=== PATIENT | female | born 1985 | race Asian ===

== ENCOUNTER 2023-06-19 08:31 | Inpatient (IN) ==
--- NOTE | 2023-06-19 08:36 | History & Physical Report ---
"Date of Service June 19, 2023 Assessment & Plan (1) Elderly multigravida, currently : (2) Encounter for induction of labor: Plan 37 y/o at 40w 3d weeks Admit to L&D Pitocin augmentation if needed monitor Category 1 Epidural when requested. GBS negative Anticipate vaginal . Admission and Anticipated Discharge Date Admission Date: June 19, 2023 History of Present Illness Primary Care Provider: NO PCP 37 y/o at 40w 3d, CLAUDIA:06/15/2023. Here for Induction of labor. Complications with this include GDM diet controlled and AMA. Has been attending OB appointments regularly. Currently taking no medications. GBS negative, Rubella immune, BTG: AB + Contractions: none. Fluid or Blood loss: none Movement: active FHR baseline 140, moderate variability, accelerations present, decelerations absent Lab Results OB Labs: Blood Type AB Positive 11/19/22 Antibody Screen NEGATIVE 11/19/22 Hemoglobin 10.4 g/dl (12.0-16.0) L 04/23/23 Hematocrit 31.5 % (37.0-47.0) L 04/23/23 Mean Corpuscular Volume 91.0 fL (80.0-100.0) 11/19/22 Platelet Count 250 K/uL (130-400) 11/19/22 Rubella IgG Antibody Immune (Immune) 11/19/22 Rapid Plasma Reagin Nonreactive (Nonreactive) 11/19/22 Hepatitis B Surface Antigen. NON-REACTIVE (NON-REACTIVE) 11/19/22 Hepatitis C Antibody (EIA) NON-REACTIVE (NON-REACTIVE) 11/19/22 HIV (1&2) Ag and Ab Confirmation NON-REACTIVE (NON-REACTIVE) 11/19/22 Glucose 1 Hour 50 gm Load 135 mg/dl (70-130) H 12/30/22 OB Optional Labs: Chlamydia trachomatis RNA Not Detected (NotDetected) 11/19/22 Neisseria gonorrhoeae RNA Not Detected (NotDetected) 11/19/22 Labs Reviewed: Declines genetics--mln cfdna-low risk--mln Allergies Allergy/AdvReac Type Severity Reaction Status Date / Time No Known Allergies Allergy Verified 06/18/23 09:09 Home Medications Medication Instructions Recorded Confirmed Type blood sugar diagnostic (XerosTouch #150 ea 05/05/23 06/18/23 Rx Verio test strips) blood-glucose meter (OneTouch #1 ea 05/05/23 06/18/23 Rx Verio Reflect Meter) lancets 33 gauge (OneTouch Delica #150 ea 05/05/23 06/18/23 Rx Plus Lancet) ferrous sulfate 325 mg (65 mg 325 mg PO DAILY 06/19/23 06/19/23 History iron) tablet prenat.vits,lucy,qwn-fboq-rexoy tab 06/19/23 History Patient History Family History Father Myocardial infarction Denies family history of Ovarian cancer Prostate cancer Breast cancer Colorectal cancer Social History Smoking Status: Never smoker Do You Dip or Chew Tobacco: No; Hx Alcohol Use: No Hx Substance Use: No Preferred Language: Irish Communication Ability: Effective 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 Skin: warm, dry, intact HEENT: NC/AT, anicteric sclera, conjunctiva without injection, moist mucus membranes Heart: +S1/S2, regular, no m/r/g Lungs: equal air entry bilaterally, no rales/rhonchi/wheezes Abd: +BS, soft, NT/ND, gravid uterus Cervical: 3|70|-2|, uterus mod. anterior Ext: warm, no clubbing/cyanosis or edema Neuro: nonfocal, patient AA&O x 4, speech intact, no facial droop, moving all extremities on command. Supervising Physician Co-Signing Physician Notes Resident Physician Supervision Note: I was present with Dr. Zeus Ching during the history and exam. I discussed the case with the resident and agree with the findings and plan as documented in the note. Any exceptions or clarifications are listed here: Admit for IOL, start pitocin. Documented By: Bianka Bravo DO Resident Activity Tracking Resident Involvement: Resident Care Provided Care Provided: OB Delivery"
[2023-06-19] MEDS ORDERED: OXYTOCIN 30 UNITS/NSS 30 UNITS/500 ML BAG IV PRN ×2 (08:45→21:52)
[2023-06-19] MEDS ORDERED: LIDOCAINE 1% LOCAL 20 ML VIAL INFIL PRN (08:45)
[2023-06-19 09:20] LABS: Hematocrit (blood only) 35.9 % (37.0-47.0); Hemoglobin 11.9 g/dl (12.0-16.0); Mean Corpuscular Hemoglobin 31.2 pg (25.0-34.0); Mean Corpuscular Hgb Conc 33.1 g/dL (32.0-36.0); Mean Corpuscular Volume 94.2 fL (80.0-100.0); Platelet Count 183 K/uL (130-400); RDW Coefficient of Variation 16.1 % (11.5-14.5); RDW Standard Deviation 55.9 fL (36.4-46.3); Red Blood Count 3.81 M/uL (4.20-5.40); White Blood Count 10.41 K/ul (4.8-10.8)
[2023-06-19] MEDS: LACTATED RINGER'S 1,000 ML IV PRN (09:38)
[2023-06-19] MEDS: OXYTOCIN 30 UNITS/NSS 30 UNITS/500 ML BAG IV PRN (09:39)
[2023-06-19] MEDS ORDERED: ePHEDrine sulfate 50 MG/ML AMP ONE (16:39)
[2023-06-19] MEDS ORDERED: fentaNYL citrate PF 100 MCG/2 ML VIAL ONE (16:39)
[2023-06-19] MEDS ORDERED: NALOXONE HCL 0.4 MG/1 ML VIAL/CARP IV PRN (16:40)
[2023-06-19] MEDS ORDERED: fentaNYL citrate PF 100 MCG/2 ML VIAL EPI PRN (16:40)
[2023-06-19] MEDS ORDERED: NALOXONE HCL 1 MG in SODIUM CHLORIDE 0.9% 1,000 ML IV PRN (16:40)
[2023-06-19] MEDS ORDERED: ROPIVACAINE 0.5% PF 5 MG/ML 20 ML VIAL EPI PRN (16:40)
[2023-06-19] MEDS ORDERED: NALBUPHINE HCL 5 MG in SYRINGE 0 ML IV PRN (16:40)
[2023-06-19] MEDS ORDERED: SODIUM CHLORIDE 0.9% PF INJ 10 ML VIAL EPI STA (16:40)
[2023-06-19] MEDS ORDERED: ePHEDrine sulfate 50 MG/ML AMP IV PRN (16:40)
[2023-06-19] MEDS ORDERED: fentANYL 2 MCG/ML BUPIVacaine 0.125%-NSS 100ML BAG EPI PRN (16:40)
[2023-06-19] MEDS ORDERED: SODIUM CHLORIDE 0.9% PF INJ 10 ML VIAL ONE (16:40)
[2023-06-19] MEDS ORDERED: diphenhydrAMINE 50 MG/ML VIAL IV PRN (16:40)
[2023-06-19] MEDS ORDERED: fentaNYL citrate PF 100 MCG/2 ML VIAL EPI STA (16:40)
[2023-06-19] MEDS ORDERED: LIDOCAINE 2% MPF LOCAL 5 ML VIAL EPI PRN (16:40)
[2023-06-19] MEDS ORDERED: BUPIVACAINE 0.25% PF 30 ML VIAL ONE (16:40)
[2023-06-19] MEDS ORDERED: BUPIVACAINE 0.25% PF 30 ML VIAL EPI STA (16:40)
[2023-06-19] MEDS ORDERED: SODIUM CHLORIDE 0.9% PF INJ 10 ML VIAL EPI PRN (16:40)
[2023-06-19] MEDS ORDERED: LIDOCAINE 2%/EPINEPHRINE 1:200,000 20 ML PF ONE (16:40)
--- NOTE | 2023-06-19 16:40 | Anesthesiology Consultation ---
Date of Service June 19, 2023 Assessment & Plan (1) Encounter for pre-operative examination: Chart Review Chart Review: Patient NOT seen in Pre Admission Testing and Acceptable Risk for Labor Epidural Consults Requested none History Height/Weight Height: 5 ft 2.2 in Weight: 69.853 kg Allergies Allergy/AdvReac Type Severity Reaction Status Date / Time No Known Allergies Allergy Verified 06/18/23 09:09 Medications Home Medications Medication Instructions Recorded Confirmed Last Taken blood sugar diagnostic (OneTouch #150 ea 05/05/23 06/18/23 Unknown Verio test strips) blood-glucose meter (OneTouch #1 ea 05/05/23 06/18/23 Unknown Verio Reflect Meter) lancets 33 gauge (OneTouch Delica #150 ea 05/05/23 06/18/23 Unknown Plus Lancet) ferrous sulfate 325 mg (65 mg 325 mg PO DAILY 06/19/23 06/19/23 06/18/23 iron) tablet prenat.vits,lucy,asv-wonn-duzsv tab 06/19/23 06/18/23 Active Medications Generic Name Dose Route Start Last Admin Trade Name Freq PRN Reason Stop Dose Admin Oxytocin 30 units in 500 mls @ 3 mls/hr 06/19/23 08:45 06/19/23 15:35 Pitocin 30 Units/Nss IV 06/21/23 08:44 0.18 units/hr .Q24H PRN 3 mls/hr Labor Induction/Augmentation Titration Protocol 0.18 UNITS/HR Lactated Ringer's 1,000 mls @ 125 mls/hr 06/19/23 08:45 06/19/23 09:38 Lr IV 06/21/23 08:44 125 mls/hr .Q8H PRN Administration L&D Protocol Protocol Past Family History Family History Father Myocardial infarction Denies family history of Ovarian cancer Prostate cancer Breast cancer Colorectal cancer Social History Smoking Status: Never smoker Do You Dip or Chew Tobacco: No Hx Alcohol Use: No Hx Substance Use: No Physical Exam Vital Signs Last Vital Signs Temp 97.7 F 06/19/23 15:30 Pulse 89 06/19/23 14:47 Resp 16 06/19/23 08:45 BP 103/62 06/19/23 14:47 Testing Laboratory Results 06/19/23 08:59 06/19/23 09:22 POC Glucose 75
[2023-06-19] MEDS: fentANYL 2 MCG/ML BUPIVacaine 0.125%-NSS 100ML BAG ONE (16:53)
[2023-06-19] MEDS: LIDOCAINE 2%/EPINEPHRINE 1:200,000 20 ML PF EPI STA (17:00)
[2023-06-19] MEDS: BUPIVACAINE 0.25% PF 30 ML VIAL EPI PRN (17:01)
[2023-06-19] MEDS ORDERED: NURSING L&D Epidural Breakthrough Pain Update ONE (18:20)
--- NOTE | 2023-06-19 21:38 | Delivery Summary ---
Vaginal Delivery Summary Date of Service June 19, 2023 Vaginal Delivery Summary DIAGNOSES: 1. Hernández intrauterine at 40w4d gestation. 2. Induction of Labor. 3. Group B Streptococcus Neg. PROCEDURE: Spontaneous vaginal delivery without laceration. SURGEON: Latha Garcia MD. [employer] ATTENDANT: None. ESTIMATED BLOOD LOSS: 200 mL. COMPLICATIONS: None. PLACENTA: Spontaneous and intact with a 3-vessel cord. DISPOSITION: Stable to labor and delivery. DESCRIPTION: The patient pushed well and brought the head to in OA position. The infant's head was allowed to deliver with contraction force and no further active pushing, with the perineum protected during this time. There was no nuchal cord. The right shoulder was anterior. The shoulders and body delivered without any difficulty, and the was placed on the maternal abdomen. It was vigorous and moving all extremities, and making respiratory efforts. The cord was doubly clamped by the MD and then cut by the FOB. The placenta delivered spontaneously and was noted to be intact and with a 3VC. The cervix, vagina and perineum were examined and were found to be without defect requiring repair. The fundus was firm and lochia minimal immediately after delivery. [facility] [place] Vaginal Delivery Charge Vaginal Delivery Codes: 87093 global code for the antepartum, delivery, and post-
[2023-06-19] MEDS ORDERED: bisacodyL 10 MG SUPP PR PRN (21:52)
[2023-06-19] MEDS ORDERED: HYDROCORTISONE ACETATE 25 MG SUPP PR PRN (21:52)
[2023-06-19] MEDS ORDERED: BENZOCAINE 20% SPRY 85 APPLN/85 GM CAN EXT PRN (21:52)
[2023-06-19] MEDS ORDERED: DIPHTHER/TETAN/PERTUS Vaccine (Tdap, Adol/Adult) 0.5mL IM ONE (21:52)
[2023-06-19] MEDS ORDERED: ACETAMINOPHEN 325 MG TAB PO PRN (21:52)
[2023-06-19] MEDS ORDERED: oxyCODONE/ACETAMINOPHEN 5mg/325mg TAB PO PRN (21:52)
[2023-06-19] MEDS: IBUPROFEN 600 MG TAB PO PRN (22:45)
[2023-06-19] MEDS: AMPICILLIN/SULBACTAM SOD 3,000 MG in SODIUM CHLOR 0.9% MINI-B 100 ML IV STA (23:11)
[2023-06-20] MEDS: AMPICILLIN SOD/SULBACTAM SOD 1,500 MG in SODIUM CHLOR 0.9% MINI-B 100 ML IV SCH (05:27)
[2023-06-20 06:51] LABS: Hematocrit (blood only) 33.4 % (37.0-47.0); Hemoglobin 11.3 g/dl (12.0-16.0); Mean Corpuscular Hemoglobin 31.7 pg (25.0-34.0); Mean Corpuscular Hgb Conc 33.8 g/dL (32.0-36.0); Mean Corpuscular Volume 93.8 fL (80.0-100.0); Mean Platelet Volume 11.2 fL (9.4-12.4); Platelet Count 180 K/uL (130-400); RDW Coefficient of Variation 15.9 % (11.5-14.5); RDW Standard Deviation 55.2 fL (36.4-46.3); Red Blood Count 3.56 M/uL (4.20-5.40); White Blood Count 18.55 K/ul (4.8-10.8)
[2023-06-20] MEDS: DOCUSATE SODIUM 100 MG CAP PO SCH (08:28)
[2023-06-20] MEDS: PRENATAL VITAMIN 1 TAB PO SCH (08:28)
--- NOTE | 2023-06-20 08:58 | Anesthesia Procedure Note ---
Date of Service June 20, 2023 Anesthesia Post Epidural Note Vital Signs Vital Signs: Temp Pulse Resp BP Pulse Ox O2 Del Method 36.7 C 83 16 99/63 L 98 Room Air 06/20/23 08:12 06/20/23 08:12 06/20/23 08:12 06/20/23 08:12 06/20/23 03:30 06/20/23 03:30 Pain Intensity Pelvic: Pain Intensity: 4 Notes Mental Status: alert / awake / arousable Nausea / Vomiting: adequately controlled Pain: adequately controlled Airway Patency, RR, SpO2: stable & adequate BP & HR: stable & adequate Hydration State: stable & adequate Neuraxial Anesthesia: was administered and sensory block is resolving Anesthetic Complications: no major complications apparent Epidural: Removed without complications and With tip intact
--- NOTE | 2023-06-20 09:04 | Obstetrical Progress Note ---
Date of Service June 20, 2023 Assessment & Plan (1) state: day 1. Fever immediately after delivery, none since, Unasyn x24 hours. Doing well otherwise. Subjective Ambulation: ambulating normally Voiding: no voiding problems Passing Gas:: Yes Diet Tolerance:: regular diet Lochia:: Small Feeding Type:: breast feeding Physical Exam Constitutional WD/WN, vitals as above Eyes PERRL, conjunctivae normal, anicteric sclerae Neck normal visual inspection Respiratory normal respiratory effort and able to speak in complete sentences; no respiratory distress and no labored breathing Cardiovascular Rate/Rhythm: regular rate and regular rhythm Extremities: no edema Chest (Breasts) Chest: normal inspection of chest Gastrointestinal (Abdomen) Inspection/Auscultation: abdomen normal to inspection Soft, postgravid Psychiatric A+Ox3, euthymic affect Genitourinary OB Exam Abdomen: + fundal height Fundus: + firm and + relation to umbilicus (fundus just below umbilicus); not tender Results & Data Vital Signs (Past 12 Hours) Vital Signs Temp Pulse Pulse Resp BP BP Pulse Ox 06/20/23 08:12 98.1 F 83 16 99/63 L 06/20/23 03:30 98.2 F 90 19 93/59 L 98 06/20/23 00:01 99.3 F 98 H 18 104/67 98 06/19/23 23:34 99.1 F 16 06/19/23 23:34 114 H 104/61 06/19/23 23:19 108 H 111/68 06/19/23 23:04 16 06/19/23 23:04 113 H 105/58 L 06/19/23 22:49 100.4 F H 16 06/19/23 22:49 110 H 102/63 06/19/23 22:33 16 06/19/23 22:33 113 H 108/64 06/19/23 22:19 16 06/19/23 22:19 109 H 117/67 06/19/23 22:04 16 06/19/23 22:04 113 H 112/63 06/19/23 21:49 18 06/19/23 21:49 110 H 114/65 06/19/23 21:36 18 06/19/23 21:36 121 H 114/59 L 06/19/23 21:34 121 H 125/61 06/19/23 21:31 121 H 73 L 06/19/23 21:29 110 H 90 06/19/23 21:26 121 H 68 L 06/19/23 21:21 117 H 98 06/19/23 21:19 97 H 123/67 06/19/23 21:18 103 H 91 06/19/23 21:16 104 H 96 06/19/23 21:12 93 H 92 06/19/23 21:11 99 H 96 06/19/23 21:06 95 H 99 06/19/23 21:04 93 H 123/65 06/19/23 21:03 90 93 O2 Del Method 06/20/23 08:12 06/20/23 03:30 Room Air 06/20/23 00:01 Room Air 06/19/23 23:34 06/19/23 23:34 06/19/23 23:19 06/19/23 23:04 06/19/23 23:04 06/19/23 22:49 06/19/23 22:49 06/19/23 22:33 06/19/23 22:33 06/19/23 22:19 06/19/23 22:19 06/19/23 22:04 06/19/23 22:04 06/19/23 21:49 06/19/23 21:49 06/19/23 21:36 06/19/23 21:36 06/19/23 21:34 06/19/23 21:31 06/19/23 21:29 06/19/23 21:26 06/19/23 21:21 06/19/23 21:19 06/19/23 21:18 06/19/23 21:16 06/19/23 21:12 06/19/23 21:11 06/19/23 21:06 06/19/23 21:04 06/19/23 21:03
[2023-06-20] MEDS: bisacodyL 5 MG TABEC PO SCH (22:07)
[2023-06-21 06:36] LABS: Hemoglobin 11.7 g/dl (12.0-16.0)
--- NOTE | 2023-06-21 08:59 | Obstetrical Progress Note ---
Date of Service June 21, 2023 Assessment & Plan (1) state: PPD#2 doing well no concerns. Reviewed DC instructions, followup in office 6w PP. Subjective Ambulation: ambulating normally Voiding: no voiding problems Diet Tolerance:: regular diet Lochia:: Moderate Review of Systems All systems reviewed & are unremarkable except as noted in HPI & below Physical Exam Constitutional WD/WN, vitals as above no acute distress Respiratory normal respiratory effort Cardiovascular Rate/Rhythm: regular rate and regular rhythm Gastrointestinal (Abdomen) Inspection/Auscultation: abdomen normal to inspection; abdomen not distended Percussion/Palpation: abdomen soft Genitourinary OB Exam Abdomen: + fundal height Fundus: + firm; not tender Results & Data Vital Signs (Past 12 Hours) Vital Signs Temp Pulse Resp BP Pulse Ox O2 Del Method 06/20/23 22:57 36.8 C 89 18 96/58 L 98 Room Air
== END 2023-06-21 12:15 | disposition home or self-care (01) | DRG 807 ==
LOC: 4S1 08:31 → 4E2 06-20 00:21